=== PATIENT | male | born 1980 | race African-American/Black ===

== ENCOUNTER 2017-05-01 16:55 | Emergency (ER) | payer OTHER ==
[~2017-05-01] VITALS: Ht 175.3 cm; Wt 92.0 kg
[~2017-05-01 16:55] MED LIST: ADVAI250I PO; ALBU6.7H INH; BENZ0.5T PO; CYCL5TAB PO; DUONI NEB; FLUC150T PO; MONT10 PO; NAPR-576 PO; PROZ40CA PO; SERO150T PO; [UNRECOGNIZED DRUG - CODE] PO
[2017-05-01 17:55] VITALS: BP 163/91; PULSE 83; RESP 18; TEMP 98.3; O2SAT 95
[2017-05-01] MEDS ORDERED: ALBU6.7H INH (17:59)
[2017-05-01] MEDS ORDERED: KETOROLAC TROMETHAMINE 60 MG/2 ML (IM) VIAL IM ONE (18:00)
[2017-05-01] MEDS ORDERED: ACETAMINOPHEN/HYDROcodone 325 MG/5 MG TAB PO ONE (18:00)
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
[2017-05-01] MEDS ORDERED: IBUP800T23 PO (20:19)
[2017-05-01] MEDS ORDERED: CYCL1TAB29 PO (20:19)
== END 2017-05-01 20:25 | disposition home or self-care (01) ==
LOC: NEPD 16:55
DX: M79.1 Myalgia (principal); V89.2XXA Person injured in unspecified motor-vehicle accident, traffic, initial encounter
CPT/HCPCS: 70450; 70486; 72125; 96372; 99285; J1885